=== PATIENT | female | born 1945 | race Caucasian/White ===

== ENCOUNTER 2021-08-20 12:36 | Observation (INO) | payer SELFPAY, OTHER ==
--- NOTE | 2021-08-16 09:05 | EKG12_ITS ---
Test Reason : PRE OP Blood Pressure : / mmHG Vent. Rate : 090 BPM Atrial Rate : 090 BPM P-R Int : 114 ms QRS Dur : 078 ms QT Int : 350 ms P-R-T Axes : 032 050 061 degrees QTc Int : 428 ms Normal sinus rhythm Normal ECG Confirmed by DANNI STAPLETON, VICK ([id number]), map editor CHANDA RIVERA ([id number]) on 08/17/2021 11:45:20 AM Referred By: ALEXA Confirmed By:VICK RAZO MD
[2021-08-16 10:31] LABS: Hematocrit 38.9 % (37-47); Hemoglobin 12.3 g/dL (12.0-15.0); Mean Corp Hgb Conc 31.6 g/dL (32-36); Mean Corpuscular Hgb 28.9 pg (27.0-32.0); Mean Corpuscular Volume 91.3 fL (81-99); Mean Platelet Vol. 9.6 fl (6.2-12.0); Platelet Count 334 K/mm3 (150-450); RBC Distribution Width CV 13.4 % (11.6-14.6); RBC Distribution Width SD 45.1 fl (35.1-43.9); Red Blood Count 4.26 M/mm3 (4.2-5.4); White Blood Count 5.6 K/mm3 (4.4-11.0)
[2021-08-16 10:42] LABS: Anion Gap 4 (5-15); BUN 9 mg/dL (7-18); BUN/Creat Ratio 10.9 RATIO (10-20); Calcium,Total 8.9 mg/dL (8.5-10.1); Chloride 108 mmol/L (98-107); Creatinine, Serum 0.82 mg/dL (0.55-1.02); EST Glomerular Filtration Rate 72 mL/min (>60); Est Glom Filt Rate - Afr Amer 87 mL/min (>60); Glucose 136 mg/dL (74-106); Magnesium 2.3 mg/dL (1.6-2.6); Prothrombin Time (Protime)PT. 12.9 SECONDS (11.7-14.9); Sodium Level 142 mmol/L (136-145)
[2021-08-16 10:43] LABS: Partial Thromboplast Time 29.9 Seconds (24.1-36.2)
[2021-08-16 10:44] LABS: Creatinine, Serum 0.86 mg/dL (0.55-1.02); EST Glomerular Filtration Rate 69 mL/min (>60); Est Glom Filt Rate - Afr Amer 83 mL/min (>60)
--- NOTE | 2021-08-19 11:21 | HP.PCM_ITS ---
History and Physical Date of Admission: 08/20/21 Surgical History and Physical Gisell Britt, a 76 year old female 4 1 4 0 5, presents for Vaginal Hysterectomy and AP Repair on 2021. -- Incomplete UV Prolapse -- Gisell complains of prolpsed uterus that is getting worse. She seen Leesa Diaz and was referred to our office. Pt states with last she was told she had a weakened cervix and had cerclage but stitches were not removed. Uterine prolapse that has been present for a few years now but is worsening. Some days she does not have any problems however most days she will feel her uterus drop. Worsens with standing for long periods of time and lifting. Prolapse which began years ago. It is located in the vagina. Gisell characterizes the quality uncomfortable. Severity is moderate but now worsening. It is aggravated by standing for long periods of time, lifting. MEDICATIONS HISTORY: Patient is also takin. latanoprost 0.005 % eye drops, 2 drops daily 2. metformin 500 mg tablet, BID 3. pravastatin 20 mg tablet, daily ALLERGIES: Zoloft, Dry mouth Infections - Chicken pox and Measles Illnesses - diabetes Accidents - None Hospitalizations - Childbirth and see surgery Review of Systems: GENERAL - Denies fever, or chills SKIN - Denies skin changes EYES - Denies visual changes EARS - Denies difficulty hearing NOSE - Denies nasal congestion or bleeding MOUTH - Denies sore throat or difficulty swallowing NECK - Denies pain or swelling RESPIRATORY - Denies shortness of breath or wheezing CARDIOVASCULAR - Denies palpitations or chest pain GASTROINTESTINAL - Denies nausea, vomiting, diarrhea, constipation GENITOURINARY - Denies dysuria, frequency of urination, incontinence of urine MUSCULOSKELETAL - Denies joint or muscle pain NEUROLOGICAL - Denies localized numbness or weakness PSYCHIATRIC - Denies depression or anxiety ENDOCRINE - Denies heat or cold intolerance, weight loss or gain HEMATO-IMMUNOLOGIC - Denies excesive bleeding with cuts SOCIAL HISTORY: Alcohol Use - denies drinking Smoking - denies smoking Diet - balanced Diet Lifestyle - moderate stress lifestyle Exercise - active Seat Belt Use - always 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 Csection 1972 2. Csection 1973 3. Csection 1975 4. Csection 1976 5. gallbladder 2009 6. Appendectomy, 1951 ; - appendicitis PHYSICAL EXAM BP- 144/70 Sitting, Right arm, regular cuff Temp- 97.8 Taken Orally Weight- 122.75286 lbs Height- 59.25 inch BMI:24.4 CONSTITUTIONAL - NAD, well nourished, and well developed NEUROLOGICAL - Cranial nerves II-XII grossly intact PSYCHIATRIC - A and O to time, place, person, mood and affect External Genitial Vagina - non-tender without lesions Urethra/Urethral Meatus - non-tender Bladder - non-tender Vagina - loss of rugae and cystocele to introitus; mild rectocele Cervix - evidence of mutiple cerclages with distortion and pedicle protruding 2 cm outside introitus; bulk of cervix just to the introitus Uterus - 5-6 cm in size, mobile and nontender Adnexa - clear without massess or tenderness ASSESSMENT/PLAN: 1. Cystocele Midline and Uterovag Prolapse Incomplete Discussed treatment options including expectant management, pessary use or proceeding with Vag Hyst and AP Repair. Pt desires proceeding with the surgery. Discussed RBAs including injury to bladder and all questions answered.
[2021-08-20] VITALS (16 sets, daily range): BP systolic 116–147; BP diastolic 51–65; PULSE 55–81; RESP 8–18; TEMP 36.4–37.1; O2SAT 97–100; BMI 23.5
--- NOTE | 2021-08-20 | HYST_PTH ---
PATIENT: OLEG THORNE LOC: [facility] U#:[id number] AGE/SX: 76/F ROOM: RI315 RE08/20/[address]: Dr. Terrence Thomas MD : 1945 BED: 1 DIS: 08/21/2021 SPEC #: [id number] RECD: 08/20/21 13:20 STATUS: JOSH REShari #: [id number] RONAL: 08/20/21 00:[address]: Terrence Thomas DEPT: SURGICAL PATHOLOGY RECD BY: Chang Shah ENTERED: 08/20/21 13:20 SP TYPE: HYSTERECT OTHR DR: ANGELO Anne Tissues: Uterus, NOS Procedures: Surgery Specimen Level V HEADER OPERATION: ERAS, vaginal hysterectomy, vaginal A & P repair PRE-OP DIAGNOSIS: Cystocele midline and uterovaginal prolapse incomplete TISSUE SUBMITTED: Uterus MICROSCOPIC DIAGNOSIS Uterus, vaginal hysterectomy: Cervix ? mild chronic cystic cervicitis and squamous metaplasia. - Focal parakeratosis. Endometrium ? inactive endometrium with cystic changes. Myometrium ? vascular calcifications. Vaginal mucosa, A & P repair: Fragments of squamous mucosa with mild chronic inflammation. CHANTELLE:michoacano 08/21/2021 MICROSCOPIC DESCRIPTION Slides are reviewed. GROSS DESCRIPTION Received in fixative is one container labeled with the patient's name and designated uterus. The specimen consists of a hysterectomy specimen consisting of a uterus with cervix and detached pieces of mucosal tissue. The uterus with cervix weighs 33 gm and measures 12 x 3 x 2 cm. The serosal surface is brito, glistening. The ectocervical mucosa is unremarkable. The external os is oval in contour. The endocervical canal is elongated and measures 6 cm in length. The endocervical mucosa is brito, glistening and unremarkable. The triangular endometrial cavity measures 2.5 cm in length and 1 cm in width. The endometrium is brito, glistening without any mass lesion and measures <0.1 cm in thickness. Sections of the uterine wall do not reveal any mass lesion and measures up to 1.5 cm in thickness. Detached pieces of brito, mucosal tissue measures in aggregate 5 x 4.5 x 0.5 cm. No mucosal lesion is identified. Instrumentation perez are noted. Mine Motor Operator sections are submitted in six cassettes as follows: 1??anterior cervix, 2 - posterior cervix, 3 - anterior uterine wall, 4 & 5 - posterior uterine wall, 6 - mucosal tissue. / CHANTELLE:michoacano 08/20/2021 TC:3 CPT: 70590, 65658
[2021-08-20 09:15] LABS: Bedside Glucose 120 mg/dL (74-106)
[2021-08-20] MEDS: Acetaminophen 500 MG Tablet 1000 MG PO ×3 (09:20→21:03)
[2021-08-20] MEDS: Gabapentin 600 MG Tablet PO (09:21)
[2021-08-20] MEDS: Lactated Ringers 1,000 ML 40 ML IV (09:21)
--- NOTE | 2021-08-20 09:36 | PCM.OPRPT ---
Report of Operation Date of Procedure: 08/20/21 Pre-Operative Diagnosis: Incomplete Uterovaginal Prolapse Post-Operative Diagnosis: Incomplete Uterovaginal Prolapse Surgery/Procedure Performed:: Vaginal Hysterectomy and Anterior Posterior Repair Description of Surgical Findings:: 6 cm uterus of which the cervix prolapses approximately 2 cm outside the introitus. Moderate cystocele and rectocele. Surgeon: Terrence Thomas network desktop support specialist: Latosha Tan Type of Anesthesia: General (Endotracheal Tube) Anesthesiologist: Elias Castro Specimen's removed: Uterus and vaginal mucosa Drains: Gonzalez to straight drain Estimated Blood Loss (mL): 50 cc Fluids Replaced: Crystalloid 1 L Description of Procedure: Surgeon: Terrence Thomas MD, FACOG Indications: This is a 76-year-old who is been having problems with symptomatic uterovaginal prolapse. The patient has had 4 prior sections and no vaginal births. Conservative measures have not been helpful. Given this the patient desires that we proceed the above procedure. She has been counseled regarding the risk and indications of this procedure including the possibility of bleeding, infection, and injury to surrounding structures such as bowel bladder. All questions were answered. Procedure: Patient was taken to the operating room where after induction of general anesthesia she was placed in the dorsal lithotomy position and prepped and draped in the usual sterile fashion. A Gonzalez catheter was placed. Anterior cervix was grasped with a tenaculum and anterior cervix circumscribed with cautery on a setting of 35 W coagulation. Anterior vaginal mucosa was undermined and anterior peritoneum was entered. The posterior aspect of the cervix was circumscribed with a knife and posterior peritoneum entered. Progressive bites were taken on either side of the uterine cervix and each pedicle ligated with 0 Vicryl suture. Superior pedicles were ligated ?2 with 0 Vicryl suture and sidewall pedicles were examined and oversewn where necessary with [id number] 0 Vicryl suture to achieve hemostasis. Posterior vaginal cuff was oversewn with running locked 0 Vicryl suture. Hemostasis was noted and peritoneum was closed in a pursestring fashion incorporating superior pedicles into the stitch. Vaginal cuff was then closed front to back with interrupted [id number] 0 Vicryl suture. Hemostasis was noted. Attention was turned toward the anterior repair portion of the procedure. Anterior vaginal mucosa was undermined and divided and then imbricated toward the midline with interrupted 0 Vicryl sutures. Vaginal mucosa was trimmed and then closed with interrupted 2-0 chromic suture. Vaginal cuff was then closed front to back with interrupted [id number] 0 Vicryl suture. Hemostasis was noted. Attention was turned toward the posterior repair portion of the procedure. Remnants of the hymenal ring were grasped with Allises and a V-shaped incision was made in the perineum. Rectovaginal mucosa was then undermined divided and then imbricated toward the midline with interrupted 0 Vicryl suture. Vaginal mucosa was trimmed and then closed with running locked 2-0 chromic suture. Remnants of the bulbocavernosus muscles were identified and brought toward the midline with a single [id number] 0 Vicryl suture and perineum was closed in the usual fashion with running and subcuticular, and jrzazj-ev-olejx 2-0 chromic suture. Hemostasis was noted. Gonzalez catheter was again opened and clear yellow urine was noted. Vagina was packed with iodoform tape. Patient tolerated the procedure well was taken to recovery room in satisfactory condition; sponge instrument and needle counts were all reportedly correct. Estimated blood loss for the case was 50 cc. Ancef 2 g IV was given prior to beginning the operative procedure. There were no apparent complications of the surgery. Specimen to pathology was uterus and vaginal mucosa. Grafts/Implants Used: None Complications None Admit VTE Documentation VTE Present on Admission: Yes VTE Mechan Device Prophylaxis: SCD's
[2021-08-20] MEDS: Cefazolin 2 GM in 0.9% Normal Saline 100 ML IV (10:19)
[2021-08-20] MEDS: Ondansetron 4 MG/2 ML Vial IV (11:55)
[2021-08-20 14:06] LABS: Bedside Glucose 153 mg/dL (74-106)
[2021-08-20 17:25] LABS: Bedside Glucose 128 mg/dL (74-106)
[2021-08-20] MEDS: Ketorolac 15 MG/ML Vial IV (18:55)
[2021-08-20] MEDS: Cefazolin 1 GM/50 ML BAG IV (19:43)
[2021-08-20] MEDS: Docusate Sodium 100 MG Capsule PO (21:03)
[2021-08-20] MEDS: Enoxaparin 40 MG/0.4 ML Syringe SC (21:03)
[2021-08-21 00:43] VITALS: BP 122/65; PULSE 81; RESP 16; TEMP 36.4; O2SAT 96
[2021-08-21] MEDS: Ketorolac 15 MG/ML Vial IV ×3 (00:48→12:20)
[2021-08-21] MEDS: Cefazolin 1 GM/50 ML BAG IV (02:58)
[2021-08-21] MEDS: Acetaminophen 500 MG Tablet 1000 MG PO ×2 (02:58→09:02)
[2021-08-21 05:26] VITALS: BP 123/58; PULSE 75; RESP 18; TEMP 36.4; O2SAT 95
[2021-08-21 06:12] LABS: Hematocrit 35.4 % (37-47); Hemoglobin 11.1 g/dL (12.0-15.0); Mean Corp Hgb Conc 31.4 g/dL (32-36); Mean Corpuscular Hgb 28.8 pg (27.0-32.0); Mean Corpuscular Volume 91.7 fL (81-99); Mean Platelet Vol. 9.9 fl (6.2-12.0); Platelet Count 298 K/mm3 (150-450); RBC Distribution Width CV 13.4 % (11.6-14.6); RBC Distribution Width SD 45.1 fl (35.1-43.9); Red Blood Count 3.86 M/mm3 (4.2-5.4); White Blood Count 9.6 K/mm3 (4.4-11.0)
[2021-08-21 08:06] VITALS: BP 125/63; PULSE 75; RESP 16; TEMP 36.3; O2SAT 97
--- NOTE | 2021-08-21 08:30 | PCM.PN.OB ---
Subjective Subjective Patient without complaints. Tolerating diet well. Minimal vaginal bleeding overnight. No pain reported. Gonzalez catheter still in. Objective Data Objective Data Good urine output. Hemoglobin okay. Vital Signs: Vital Signs Temp Pulse Resp BP Pulse Ox 97.3 F L 75 16 125/63 H 97 08/21/21 08:06 08/21/21 08:06 08/21/21 08:06 08/21/21 08:06 08/21/21 08:06 Oxygen Flow Rate (L/min) 4 Oxygen Delivery Method Room Air Weight: 120 lb 5.958 oz Body Mass Index (BMI) 23.5 Intake & Output: Intake and Output for Last 24 Hours 08/19/21 08/20/21 08/21/21 23:59 23:59 23:59 Intake Total 1762 / 1762 2049 / 2050 Output Total 390 / 390 1550 / 1550 Balance 1372 / 1372 500 / 500 Lab / Micro Data Result Diagrams: 08/21/21 05:12 08/16/21 10:02 Labs: Laboratory Results - last 24 hr 08/20/21 09:02: POC Glucose 120 H 08/20/21 13:40: POC Glucose 153 H 08/20/21 17:08: POC Glucose 128 H 08/21/21 05:12: WBC 9.6, RBC 3.86 L, Hgb 11.1 L, Hct 35.4 L, MCV 91.7, MCH 28.8, MCHC 31.4 L, RDW Std Deviation 45.1 H, RDW Coeff of Luisito 13.4, Plt Count 298, MPV 9.9 Assessment & Plan (1) Uterovaginal prolapse: COMMENT: Doing well postoperative day #1 status post vaginal hysterectomy and anterior posterior repair. Vaginal pack out and minimal bleeding noted. Will discharge to home later today when able to void on own.
--- NOTE | 2021-08-21 08:32 | PCM.DC ---
Discharge Instructions Diet Discharge Diet: No restrictions Activity Discharge Activity: May Shower and May Take a Tub Bath May resume sexual activity in: 6 weeks (nothing in the vagina.) Lifting Restrictions: 25 pounds for 6 weeks. Additional Activity Instructions:: Nothing in the vagina for 6 weeks please; no lifting more than 20-25 lbs for 6 weeks. Use Ibuprophen 800 mg orally every 8 hours as needed for pain. Can also add Tylenol 1000 mg every 8 hours if needed for pain. If Ibuprophen and Tylenol are not effective then use the Oxycodone but keep in mind it can cause serious constipation issues. Drink lots of water. Call if bleeding more than a pad per hour. Use the colace as constipation is a big issue after this type of surgery. Steps and walking are OK. Activity is encouraged but do not over do it !! Dressing / Incision Call your doctor if your incision/area has: Continuous Slow Oozing, Sudden Increased Bleeding, Increased Pain/ Swelling, Increased Redness and Foul Smelling Discharge Call your doctor if you observe: Fever of 101 or Higher, Inability to urinate, Inability to have a bowel movement, Using more than 1 pad per hour and - (Some vaginal bleeding may be noted for up to 4-8 weeks.) Follow Up Care Please Follow Up With: Terrence Thomas MD When: Call [phone] for an appointment to be seen in 2 weeks. Test Results: Test results from this visit will be discussed in further detail at your follow-up appointment, if applicable. Discharge Plan Admission Admit Date/Time: 08/20/21 12:36 Primary Reason for Your Visit: Vaginal Hysterectomy and Anterior Posterior Repair Attending Provider: Terrence Thomas Primary Care Provider: Anuradha Thibodeaux Discharge Orders/Prescriptions Prescriptions: New oxycodone 5 mg capsule 5 mg PO Q6H PRN (Reason: pain (scale score 7-10)) 7 Days Qty: 5 RF: 0 docusate sodium 100 mg tablet 100 mg PO BID PRN (Reason: constipation) Qty: 60 RF: 1 Continued multivitamin Tablet 1 tab PO DAILY RF: 0 latanoprost 0.005 % drops 1 drp EACH EYE DAILY RF: 0 metformin 500 mg tablet 500 mg PO BID RF: 0 atorvastatin 20 mg tablet 20 mg PO QHS RF: 0 ascorbic acid (vitamin C) [Vitamin C] 500 mg Tablet 500 mg PO DAILY RF: 0 calcium carbonate-vitamin D2 600 mg calcium- 200 unit Tablet 1 tab PO DAILY RF: 0 grape seed extract 100 mg Capsule 100 mg PO DAILY RF: 0 aspirin 81 mg Capsule 81 mg PO DAILY RF: 0 Referrals / Follow Up: Anuradha Thibodeaux PA [Primary Care Provider] - Disposition Disposition (needs filled in before D/C Order can be placed): Home, Self Care
[2021-08-21] MEDS: Docusate Sodium 100 MG Capsule PO (09:02)
[2021-08-21] MEDS: 0.9% Saline Lock 10 ML Syringe IV (12:20)
[2021-08-21 15:06] VITALS: BP 132/68; PULSE 81; RESP 18; TEMP 36.8; O2SAT 98
== END 2021-08-21 15:30 | disposition home or self-care (01) ==
LOC: SDC 13:42 → MS3 13:42
PROVIDERS: Anesthesiology; Admitting Provider Obstetrics & Gynecology; PCP Physician Assistant; Referring Provider Obstetrics & Gynecology; Visit Provider Obstetrics & Gynecology
PROC: (CPT 58260; principal; 2021-08-20 10:25)
DX: N81.2 Incomplete uterovaginal prolapse (principal); E11.9 Type 2 diabetes mellitus without complications; K21.9 Gastro-esophageal reflux disease without esophagitis; Z79.899 Other long term (current) drug therapy; Z79.84 Long term (current) use of oral hypoglycemic drugs; Z79.82 Long term (current) use of aspirin; E78.00 Pure hypercholesterolemia, unspecified; N72 Inflammatory disease of cervix uteri
CPT/HCPCS: 58260; 57260; 00944; 36415; 80048; 82565; 82962; 83036; 83735; 85027; 85610; 85730; 86850; 86900; 86901; 88307; 93005; 96365; 96366; 96372; 96375; 96376; 99218; 99251; J7120; A4216; G0378; G0463; J0330; J2405; J3475